=== PATIENT | male | born 1960 | race American Indian/Alaskan Native ===

== ENCOUNTER 2018-10-11 00:01 | Emergency (ER) | payer MEDICAID ==
[2018-10-11 00:05] VITALS: O2SAT 97
[2018-10-11] MEDS ORDERED: Piperacillin/Tazobact 3.375 GM in Sodium Chloride 0.9% 100 ML IVPB STA (01:09)
[2018-10-11] MEDS ORDERED: Sodium Chloride 0.9% 1,000 ML IV STA (01:10)
[2018-10-11] MEDS ORDERED: metroNIDAZOLE 500mg/100ml NS 0 ML IVPB ONE (01:53)
[2018-10-11] MEDS ORDERED: Piperacillin/Tazobact 3.375 gm Inj IVPB ONE (01:53)
[2018-10-11] MEDS ORDERED: Vancomycin 1 g Inj ONE (01:55)
[2018-10-11 02:32] LABS: BASO # 0.1 K/uL (0.0-0.2); BASO % 1.3 % (0.0-2.0); EOS # 0.3 K/uL (0.0-0.7); EOS % 5.3 % (0.0-4.0); HEMOGLOBIN 10.6 g/dL (12.0-18.0); LYMPH # 2.3 K/uL (1.0-4.3); LYMPH % 35.9 % (20.0-40.0); MEAN CELL VOLUME 70.9 fl (80.0-94.0); MEAN CORPUSCULAR HEMOGLOBIN 21.8 pg (27.0-31.0); MEAN CORPUSCULAR HGB CONC 30.8 g/dL (33.0-37.0); MEAN PLATELET VOLUME 8.4 fl (7.2-11.7); MONO # 0.5 K/uL (0.0-0.8); MONO % 8.5 % (0.0-10.0); NEUT # 3.1 K/uL (1.8-7.0); RBC 4.87 Mil/uL (4.40-5.90); RED CELL DISTRIBUTION WIDTH 15.4 % (11.5-14.5); WHITE BLOOD COUNT 6.3 K/uL (4.8-10.8)
[2018-10-11 02:39] LABS: ALB/GLOB RATIO 0.9 (1.0-2.1); ALBUMIN 3.6 g/dL (3.5-5.0); ALT/SGPT 27 U/L (21-72); AST/SGOT 33 U/L (17-59); BLOOD UREA NITROGEN 21 mg/dl (9-20); CALCIUM 9.4 mg/dL (8.4-10.2); GFR NON-AFRICAN AMERICAN > 60
[2018-10-11 02:52] VITALS: RESP 15
--- NOTE | 2018-10-11 04:05 | ED PDOC ---
Lower Extremity Pain/Injury Time Seen by Provider: 10/11/18 01:09 Chief Complaint (Nursing): Lower Extremity Problem/Injury Chief Complaint (Provider): right toe swelling History Per: Patient (58 y/o male h/o HIV/ DM here with right foot swelling/pain noted this week. No fevers/chills. Denies any fall.) Past Medical History Reviewed: Historical Data, Nursing Documentation, Vital Signs Vital Signs: Last Vital Signs Temp 98.9 F 10/11/18 02:52 Pulse 70 10/11/18 02:52 Resp 15 10/11/18 02:52 BP 138/72 10/11/18 02:52 Pulse Ox 97 10/11/18 02:52 - Family History Family History: States: No Known Family Hx - Home Medications Home Medications: Ambulatory Orders Medication Instructions Recorded Amoxicillin/Clavulanate [Augmentin 1 tab PO BID #14 tab 10/11/18 875 MG-125 MG] - Allergies Allergies/Adverse Reactions: Allergies Allergy/AdvReac Type Severity Reaction Status Date / Time efavirenz [From Sustiva] Allergy RASH Verified 10/11/18 00:05 Review of Systems ROS Statement: Except As Marked, All Systems Reviewed And Found Negative Musculoskeletal: Positive for: Foot Pain Physical Exam - Reviewed Nursing Documentation Reviewed: Yes Vital Signs Reviewed: Yes - Physical Exam Appears: Positive for: Well, Non-toxic, No Acute Distress Head Exam: Positive for: ATRAUMATIC, NORMAL INSPECTION, NORMOCEPHALIC Skin: Positive for: Normal Color, Warm, DRY Eye Exam: Positive for: EOMI, Normal appearance, PERRL ENT: Positive for: Normal ENT Inspection Neck: Positive for: Normal, Painless ROM Cardiovascular/Chest: Positive for: Regular Rate, Rhythm Respiratory: Positive for: CNT, Normal Breath Sounds Gastrointestinal/Abdominal: Positive for: Normal Exam, Soft Back: Positive for: Normal Inspection Extremity: Positive for: Normal ROM, Swelling (fourth toe of right foot. (+) wound ulcerative with prululent discharge noted. No surrounding erythema) Neurological/Psych: Positive for: Awake, Alert, Normal Tone - Laboratory Results Result Diagrams: 10/11/18 02:00 10/11/18 02:00 Lab Results: Total Bilirubin 0.6 mg/dl (0.2-1.3) 10/11/18 02:00 AST 33 U/L (17-59) 10/11/18 02:00 ALT 27 U/L (21-72) 10/11/18 02:00 Alkaline Phosphatase 61 U/L (38-126) 10/11/18 02:00 Total Protein 7.5 G/DL (6.3-8.2) 10/11/18 02:00 Albumin 3.6 g/dL (3.5-5.0) 10/11/18 02:00 Globulin 3.9 gm/dL (2.2-3.9) 10/11/18 02:00 Albumin/Globulin Ratio 0.9 (1.0-2.1) L 10/11/18 02:00 - ECG O2 Sat by Pulse Oximetry: 97 - Progress ED Course And Treament: Zosyn 3.375gm iv x 1 dose Vancomycin 1 gm iv x 1 dose Xry of foot: wnl d/w podiatry resident. seen by podiatry resident We will place on augmentin rx and r/u with podiatry clinic to see Dr. Adamson next Thursday. Disposition - Clinical Impression Clinical Impression: Foot ulcer, Wound infection - Patient ED Disposition Is Patient to be Admitted: No - Disposition Referrals: Podiatry Clinic [Outside] Disposition: Routine/Home Disposition Time: 05:56 Condition: FAIR Additional Instructions: FOLLOW UP WITH PODIATRY CLINIC IN [address] ADAMSON. Prescriptions: Amoxicillin/Clavulanate [Augmentin 875 MG-125 MG] 1 tab PO BID #14 tab Instructions: Diabetic Foot Ulcer (DC)
[2018-10-11] MEDS ORDERED: Povidone Iodine Oint 10% Foilpak UD ONE (05:31)
[2018-10-11 05:36] VITALS: BP 131/73; PULSE 82; TEMP 98.8
--- NOTE | 2018-10-11 06:04 | CP.PCM.CON ---
Past Patient History - Past Social History Smoking Status: Never Smoked - PSYCHIATRIC Hx Substance Use: Yes Meds Home Medications: Home Medication List Medication Instructions Recorded Confirmed Type Amoxicillin/Clavulanate [Augmentin 1 tab PO BID #14 tab 10/11/18 Rx 875 MG-125 MG] Allergies/Adverse Reactions: Allergies Allergy/AdvReac Type Severity Reaction Status Date / Time efavirenz [From Sustiva] Allergy RASH Verified 10/11/18 00:05 Results - Vital Signs Recent Vital Signs: Last Vital Signs Temp 98.8 F 10/11/18 05:36 Pulse 82 10/11/18 05:36 Resp 15 10/11/18 05:36 BP 131/73 10/11/18 05:36 Pulse Ox 97 10/11/18 06:01 - Labs Result Diagrams: 10/11/18 02:00 10/11/18 02:00 Labs: Laboratory Results - last 24 hr 10/11/18 10/11/18 10/11/18 02:00 02:00 02:00 WBC 6.3 RBC 4.87 Hgb 10.6 L Hct 34.5 L MCV 70.9 L MCH 21.8 L MCHC 30.8 L RDW 15.4 H Plt Count 241 MPV 8.4 Neut % (Auto) 49.0 L Lymph % (Auto) 35.9 [place] % (Auto) 8.5 Eos % (Auto) 5.3 H Baso % (Auto) 1.3 Neut # (Auto) 3.1 Lymph # (Auto) 2.3 [place] # (Auto) 0.5 Eos # (Auto) 0.3 Baso # (Auto) 0.1 Sodium 138 Potassium 4.3 Chloride 104 Carbon Dioxide 25 Anion Gap 13 BUN 21 H Creatinine 1.0 Est GFR ( Amer) > 60 Est GFR (Non-Af Amer) > 60 Random Glucose 138 H Lactic Acid 1.1 Calcium 9.4 Total Bilirubin 0.6 AST 33 ALT 27 Alkaline Phosphatase 61 Total Protein 7.5 Albumin 3.6 Globulin 3.9 Albumin/Globulin Ratio 0.9 L
--- NOTE | 2018-10-11 14:24 | RAD ---
Date of service: 10/11/2018 PROCEDURE: Right Foot Radiographs. HISTORY: fourth toe swelling COMPARISON: None. FINDINGS: BONES: Bone alignment and mineralization are normal. There is no acute displaced fracture or bone destruction. JOINTS: Normal. SOFT TISSUES: Normal. OTHER FINDINGS: None. IMPRESSION: No acute fracture or dislocation.
== END 2018-10-11 06:41 | disposition home or self-care (01) ==
LOC: H.ER 00:01
DX: L89.893 Pressure ulcer of other site, stage 3 (principal); E11.9 Type 2 diabetes mellitus without complications; B20 Human immunodeficiency virus [HIV] disease
CPT/HCPCS: 73630; 80053; 83605; 85025; 87040; 96374; 99284; J1885; J2543; J7030